=== PATIENT | female | born 1980 | race Caucasian/White ===

== ENCOUNTER 2023-07-06 08:36 | Outpatient (OUT) | payer BC, SELFPAY ==
[2023-07-06 09:13] LABS: Basophils Absolute Auto 0.1 10^3/uL (0.0-0.1); Basophils Percent Auto 0.8 % (0.2-2.0); Eosinophils Absolute Auto 0.2 10^3/uL (0.0-0.7); Eosinophils Percent Auto 1.9 % (0.9-7.0); Hematocrit 47.8 % (36.0-48.0); Hemoglobin 15.1 g/dL (12.0-16.0); Immature Granulocytes Abs Auto 0.02 10^3/uL (0.00-0.03); Immature Granulocytes Pct Auto 0.2 % (0.0-0.5); Lymphocytes Absolute Auto 2.7 10^3/uL (1.2-3.8); Lymphocytes Percent Auto 32.2 % (20.5-60.0); Mean Corpuscular HGB Conc 31.6 g/dL (29.9-35.2); Mean Corpuscular Hemoglobin 28.2 pg (26.7-34.0); Mean Corpuscular Volume 89.2 fL (81.0-99.0); Mean Platelet Volume 9.5 fL (9.5-13.5); Monocytes Absolute Auto 0.6 10^3/uL (0.3-0.8); Monocytes Percent Auto 7.1 % (1.7-12.0); Neutrophils Absolute Auto 4.9 10^3/uL (1.4-6.5); Neutrophils Percent Auto 57.8 % (43.0-75.0); Platelet Count 414 10^3/uL (150-450); Red Blood Count 5.36 10^6/uL (4.20-5.40); Red Cell Distribution Width 12.5 % (11.0-15.0); White Blood Count 8.5 10^3/uL (4.0-11.0)
[2023-07-06 09:25] LABS: Estimated Average Glucose 111 mg/dL; Glycohemoglobin A1C 5.5 % (4.5-6.2)
[2023-07-06 10:15] LABS: Alanine Aminotransferase 26 U/L (14-59); Albumin Level 3.9 g/dL (3.4-5.0); Alkaline Phosphatase 58 U/L (46-116); Aspartate Amino Transferase 12 U/L (15-37); BUN Creatinine Ratio 19.7; Bilirubin Total 0.5 mg/dL (0.2-1.0); Calcium 9.2 mg/dL (8.5-10.1); Chloride 101 mmol/L (98-107); Estimated GFR (African America >60 (>=60); Estimated GFR (Non-African Ame >60 (>=60); Globulin 4.1 g/dL; Glucose 92 mg/dL (74-106); Sodium 137 mmol/L (136-145); Uric Acid 6.1 mg/dL (2.6-6.0)
[2023-07-06 10:43] LABS: C Reactive Protein <0.2 mg/dL (<=1.0); Free T3 <0.50 pg/mL (2.18-3.98)
[2023-07-07 08:09] LABS: Antistreptolysin O Ab 527.3 IU/mL (0.0-200.0); Rheumatoid Factor (RF) 106.7 IU/mL (<14.0)
[2023-07-08 11:08] LABS: Insulin 14.5 uIU/mL (2.6-24.9)
[2023-07-08 16:08] LABS: Antinuclear Antibodies, IFA Negative (.)
== END 2023-07-06 08:37 | disposition home or self-care (01) ==
PROVIDERS: PCP Family Medicine; Visit Provider Family Medicine
DX: M19.90 Unspecified osteoarthritis, unspecified site (principal); L40.50 Arthropathic psoriasis, unspecified; R73.09 Other abnormal glucose; D64.9 Anemia, unspecified; E55.9 Vitamin D deficiency, unspecified
CPT/HCPCS: 36415; 80053; 82306; 83036; 83525; 83540; 84436; 84443; 84481; 84550; 85025; 86038; 86060; 86140; 86430; 86431

== ENCOUNTER 2023-07-08 09:36 | Outpatient (OUT) | payer BC, SELFPAY ==
[2023-07-08 10:51] LABS: Free T3 2.71 pg/mL (2.18-3.98)
== END 2023-07-08 09:37 | disposition home or self-care (01) ==
LOC: LAB 09:55
PROVIDERS: PCP Family Medicine; Visit Provider Family Medicine
DX: R53.83 Other fatigue (principal)
CPT/HCPCS: 36415; 84481